=== PATIENT | female | born 1970 | race Caucasian/White ===

== ENCOUNTER 2023-08-18 18:38 | Emergency (ER) | payer MEDICAID ==
[~2023-08-18] VITALS: Ht 160 cm; Wt 95.0 kg
[2023-08-18 18:58] VITALS: PULSE 67
[2023-08-18 20:05] VITALS: BP 138/84; RESP 18; TEMP 98; O2SAT 96
== END 2023-08-18 20:07 | disposition home or self-care (01) ==
LOC: ER 18:38
DX: S60.452A Superficial foreign body of right middle finger, initial encounter (principal); X58.XXXA Exposure to other specified factors, initial encounter; Y93.89 Activity, other specified; Y92.89 Other specified places as the place of occurrence of the external cause; Y99.8 Other external cause status
CPT/HCPCS: 99284